=== PATIENT | male | born 1995 | race American Indian/Alaskan Native ===

== ENCOUNTER 2017-04-04 14:11 | Emergency (ER) | payer SELFPAY ==
[2017-04-04] MEDS ORDERED: Bacitracin Oint 1 GM U/D Packet TOP ONE (14:22)
[2017-04-04] MEDS ORDERED: Lidocaine 1% 30 ML SDV INJECT ONE (14:22)
[2017-04-04] MEDS ORDERED: Diphtheria,Pertussis(Acell),Tetanus Vaccine 0.5 ML SDV IM ONE (14:23)
--- NOTE | 2017-04-04 14:41 | EDM.PDOC ---
ED HPI GENERAL MEDICAL PROBLEM - General Chief Complaint: Laceration Stated Complaint: CUT LEFT ARM Time Seen by Provider: 04/04/17 14:20 Source of Information: Reports: Patient History Limitations: Reports: No Limitations - History of Present Illness INITIAL COMMENTS - FREE TEXT/NARRATIVE: This 21 yo male patient reports to the ED with a 1 week history of a laceration to his left forearm distal to his elbow. The patient reports the bleeding was controlled until he took a shower today and removed the scab. Onset: Today Duration: Constant Location: Reports: Upper Extremity, Left Quality: Reports: Ache, Dull Severity: Mild Improves with: Reports: None Worsens with: Reports: None Associated Symptoms: Reports: No Other Symptoms - Related Data Allergies Allergy/AdvReac Type Severity Reaction Status Date / Time No Known Allergies Allergy Verified 10/03/13 14:49 Home Meds: Home Meds . [No Known Home Meds] 11/03/13 [History] Past Medical History - Past Health History Medical/Surgical History: Denies Medical/Surgical History Social & Family History - Family History Family Medical History: Noncontributory - Tobacco Use Smoking Status *Q: Never Smoker Years of Tobacco use: 5 Packs/Tins Daily: 0.1 Used Tobacco, but Quit: No Month Tobacco Last Used: 0 Second Hand Smoke Exposure: Yes - Caffeine Use Caffeine Use: Reports: None - Recreational Drug Use Recreational Drug Use: No Drug Use in Last 12 Months: Yes Recreational Drug Type: Reports: Amphetamines (Speed), Marijuana/Hashish Recreational Drug Use Frequency: Not Used In Over 6 Months - Living Situation & Occupation Living situation: Reports: Single, Other Occupation: Unemployed ED ROS GENERAL - Review of Systems Review Of Systems: ROS reveals no pertinent complaints other than HPI. ED EXAM, SKIN/RASH Exam: See Below Exam Limited By: No Limitations General Appearance: Alert, WD/WN, No Apparent Distress Eye Exam: Bilateral Eye: EOMI, Normal Inspection, PERRL Ears: Normal External Exam, Normal Canal, Hearing Grossly Normal, Normal TMs Nose: Normal Inspection, Normal Mucosa, No Blood Throat/Mouth: Normal Inspection, Normal Lips, Normal Teeth, Normal Gums, Normal Oropharynx, Normal Voice, No Airway Compromise Head: Atraumatic, Normocephalic Neck: Normal Inspection, Supple, Non-Tender, Full Range of Motion Respiratory/Chest: No Respiratory Distress, Lungs Clear, Normal Breath Sounds, No Accessory Muscle Use, Chest Non-Tender Cardiovascular: Normal Peripheral Pulses, Regular Rate, Rhythm, No Edema, No Gallop, No JVD, No Murmur, No Rub GI/Abdominal: Normal Bowel Sounds, Soft, Non-Tender, No Organomegaly, No Distention, No Abnormal Bruit, No Mass (Male) Exam: Deferred Rectal (Males) Exam: Deferred Back Exam: Normal Inspection, Full Range of Motion, NT Extremities: Normal Range of Motion, No Pedal Edema, Normal Capillary Refill Neurological: Alert, Oriented, CN II-XII Intact, Normal Cognition, Normal Gait, Normal Reflexes, No Motor/Sensory Deficits Psychiatric: Normal Affect, Normal Mood Skin: Warm, Dry, Normal Color, No Rash Location, Skin: Upper Extremity, Left Characteristics: Linear Associated features: Warmth Lymphatic: No Adenopathy ED SKIN PROCEDURES - Laceration/Wound Repair Left Arm Lac/Wound length In cm: 2.5 Appearance: Subcutaneous Distal NVT: Neuro & Vascular Intact Anesthetic Type: Local Local Anesthesia - Lidocaine (Xylocaine): 1% Plain Local Anesthetic Volume: 3cc Skin Prep: Saline Exploration/Debridement/Repair: Wound Explored, In a Bloodless Field, Explored to Base, No Foreign Material Found Closed with: Sutures Suture Size: 3-0 # of Sutures: 1 Suture Type: Prolene, Mattress Drain Placement: No Sterile Dressing Applied: Nurse Tetanus Status Addressed: Yes Complications: No Course - Vital Signs Last Recorded V/S: Last Vital Signs Temp 37.1 C 04/04/17 14:20 Pulse 85 04/04/17 14:20 Resp 16 04/04/17 14:20 BP 145/85 H 04/04/17 14:20 Pulse Ox 100 04/04/17 14:20 - Orders/Labs/Meds Orders: Active Orders 24 hr Category Date Time Status Vaccines to be Administered [RC] PER UNIT ROUTINE Care 04/04/17 14:23 Active Meds: Medications Discontinued Medications Generic Name Dose Route Start Last Admin Trade Name Freq PRN Reason Stop Dose Admin Bacitracin 1 dose 04/04/17 14:22 04/04/17 14:29 Bacitracin Oint 1 Gm TOP 04/04/17 14:23 1 dose ONETIME ONE Administration Diphtheria/Tetanus/Acell Pertussis 0.5 ml 04/04/17 14:23 04/04/17 14:29 Adacel IM 04/04/17 14:24 0.5 ml .ONCE ONE Administration Lidocaine HCl 30 ml 04/04/17 14:22 04/04/17 14:29 Xylocaine-Mpf 1% INJECT 04/04/17 14:23 30 ml ONETIME ONE Administration Departure - Departure Time of Disposition: 14:36 Disposition: Home, Self-Care 01 Condition: Fair Clinical Impression: Laceration of forearm Qualifiers: Encounter type: initial encounter Laterality: left Qualified Code(s): S51.812A - Laceration without foreign body of left forearm, initial encounter - Discharge Information Instructions: Stitches, Ashley, or Adhesive Wound Closure, [id number] Referrals: PCP,None [Primary Care Provider] - Forms: ED Department Discharge Care Plan Goals: The patient was advised of the examination results during the visit. A horizontal mattress suture was placed to stop the bleeding. The remainder of the laceration was left open due to the laceration happening about 1 week ago. The patient was given a script for Augmentin (500/125) #20 to take 1 by mouth 2 times per day for 10 days. The patient should keep the area clean and dry for the next 48 hours. The patient should have the suture removed in 10 -14 days by his primary care facility. If the patient has any additional symptoms or concerns, the patient should follow-up with his primary care facility or return to the emergency department. - My Orders Last 24 Hours: My Active Orders 04/04/17 14:23 Vaccines to be Administered [RC] PER UNIT ROUTINE - Assessment/Plan Last 24 Hours: My Active Orders 04/04/17 14:23 Vaccines to be Administered [RC] PER UNIT ROUTINE
[2017-04-04 15:21] VITALS: BP 145/85
== END 2017-04-04 14:50 | disposition home or self-care (01) ==
LOC: DL.ED 14:11
DX: S51.812A Laceration without foreign body of left forearm, initial encounter (principal); Z23 Encounter for immunization; W45.8XXA Other foreign body or object entering through skin, initial encounter
CPT/HCPCS: 12001; 90471; 90715; 99282

== ENCOUNTER 2019-12-03 23:30 | Emergency (ER) | payer SELFPAY ==
[2019-12-03] MEDS ORDERED: Bacitracin Oint 1 GM U/D Packet TOP ONE (23:38)
[2019-12-03] MEDS ORDERED: Lidocaine 1% with EPINEPHrine 1:100,000 20 ML MDV INJECT ONE (23:42)
[2019-12-04 00:04] VITALS: BP 146/88; PULSE 106
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
== END 2019-12-04 02:20 | disposition home or self-care (01) ==
LOC: DL.ED 23:30
DX: S01.111A Laceration without foreign body of right eyelid and periocular area, initial encounter (principal); S00.83XA Contusion of other part of head, initial encounter; Y04.0XXA Assault by unarmed brawl or fight, initial encounter
CPT/HCPCS: 12013; 70450; 70486; 99282; 99284-25

== ENCOUNTER 2020-04-16 19:02 | Emergency (ER) | payer SELFPAY ==
[2020-04-16 19:19] VITALS: BP 139/91; PULSE 116
[2020-04-16 20:01] LABS: ANION GAP 12.7 mEq/L (7-13); CHLORIDE,CL 106 mmol/L (98-107); SODIUM,NA 139 mmol/L (136-145)
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
== END 2020-04-16 20:05 ==
LOC: DL.ED 19:02
DX: F10.129 Alcohol abuse with intoxication, unspecified (principal); Y90.8 Blood alcohol level of 240 mg/100 ml or more; F17.210 Nicotine dependence, cigarettes, uncomplicated; Z91.048 Other nonmedicinal substance allergy status
CPT/HCPCS: 36415; 80053; 80305-QW; 80307; 81001; 82150; 83690; 85025; 99282; 99284

== ENCOUNTER 2021-03-17 22:16 | Emergency (ER) | payer OTHER ==
[2021-03-17 23:22] LABS: CHLORIDE,CL 107 mmol/L (98-107); SODIUM,NA 144 mmol/L (136-145)
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
== END 2021-03-17 23:41 ==
LOC: DL.ED 22:16
DX: Z02.89 Encounter for other administrative examinations (principal); F10.129 Alcohol abuse with intoxication, unspecified; Z91.09 Other allergy status, other than to drugs and biological substances; Y90.8 Blood alcohol level of 240 mg/100 ml or more
CPT/HCPCS: 36415; 80053; 80307; 85025; 99284